=== PATIENT | female | born 1975 | race Hispanic/Latino ===

== ENCOUNTER 2021-09-16 05:32 | Observation (INO) | payer BC ==
[2021-09-15 11:32] LABS: BASOPHILS % (AUTO) 1.2 % (0.0-5.0); EOSINOPHILS % (AUTO) 4.5 % (0.0-8.0); HEMATOCRIT 33.5 % (36-48); MEAN CORPUSCULAR HEMOGLOBIN 23.1 pg (27.0-33.0); MEAN CORPUSCULAR HGB CONC 29.6 g/dL (32.0-36.0); MEAN CORPUSCULAR VOLUME 78.3 fL (79-99); MONOCYTES % (AUTO) 5.2 % (3.0-13.0); NEUTROPHILS % (AUTO) 64.7 % (40.0-77.0); PLATELET COUNT (AUTO) 414 K/uL (130-400); RED BLOOD CELL COUNT(AUTO) 4.28 MIL/uL (4.00-5.50); RED CELL DISTRIBUTION WIDTH 17.3 % (11.0-15.5)
[2021-09-15 12:40] VITALS: BP 141/87
[~2021-09-16] VITALS: Ht 157.5 cm; Wt 92.4 kg
[2021-09-16] VITALS (23 sets, daily range): BP systolic 102–144; BP diastolic 44–79
[~2021-09-16 05:32] MED LIST: APIX2.5T PO; ASCO500T20 PO; IRON1CAP35 PO; VITAMIN D PO
[2021-09-16] MEDS: CEFAZOLIN SODIUM 1 GM VIAL IVP SCH ×2 (06:00→07:32)
[2021-09-16] MEDS ORDERED: LACTATED RINGERS 1000ML 1,000 ML IV SCH (06:00)
[2021-09-16] MEDS ORDERED: ROCURONIUM 10MG/1ML SYR 10 MG/ML ML ONE ×2 (07:10→09:10)
[2021-09-16] MEDS ORDERED: LIDOCAINE PF 100MG/5ML (2%) SYRINGE 5ML ONE (07:10)
[2021-09-16] MEDS ORDERED: PROPOFOL 10 MG/ML 20ML VIAL IV ONE (07:10)
[2021-09-16] MEDS ORDERED: MIDAZOLAM HCL 1 MG/ML 2ML VIAL ONE (07:10)
[2021-09-16] MEDS ORDERED: SUCCINYLCHOLINE 200MG/10ML SYR ONE (07:10)
[2021-09-16] MEDS ORDERED: FENTANYL CITRATE PF 50 MCG/1 ML 2ML VIAL ONE ×2 (07:26→09:04)
[2021-09-16] MEDS ORDERED: DEXAMETHASONE SOD PHOSPHATE 4 MG/ML 1ML VIAL ONE (07:32)
[2021-09-16] MEDS ORDERED: PHENYLEPHRINE HCL 10 MG/ML 1ML VIAL IV ONE (07:42)
[2021-09-16] MEDS ORDERED: GLYCOPYRROLATE 1 MG/5 ML SYRINGE ONE (09:16)
[2021-09-16] MEDS ORDERED: ONDANSETRON 4MG INJ ONE (09:16)
[2021-09-16] MEDS ORDERED: NEOSTIGMINE 5MG/5ML SYR IV ONE (09:16)
[2021-09-16] MEDS ORDERED: MEPERIDINE-PF 25 MG/ML SYG ONE (10:09)
[2021-09-16] MEDS ORDERED: BISACODYL 10 MG SUPP.RECT RC PRN (11:00)
[2021-09-16] MEDS ORDERED: DOCUSATE SODIUM 100 MG CAP PO PRN (11:00)
[2021-09-16] MEDS ORDERED: SIMETHICONE 80 MG TAB.CHEW PO PRN (11:00)
[2021-09-16] MEDS ORDERED: PROMETHAZINE HCL 25 MG/ML 1ML AMPULE IM PRN ×2 (11:00)
[2021-09-16] MEDS ORDERED: MEPERIDINE-PF 75 MG/ML SYG IM PRN (11:00)
[2021-09-16] MEDS ORDERED: ONDANSETRON 4MG INJ IVP PRN (11:00)
[2021-09-16] MEDS: DEXTROSE 5 %-0.45 % NACL 1,000 ML IV PRN ×2 (11:06→19:42)
[2021-09-16] MEDS: IBUPROFEN 600 MG TABLET PO PRN (12:44)
[2021-09-16] MEDS: ACETAMINOPHEN WITH CODEINE 1 TAB TAB PO PRN ×2 (16:15→20:42)
[2021-09-17 03:19] VITALS: BP 113/70
[2021-09-17] MEDS: ACETAMINOPHEN WITH CODEINE 1 TAB TAB PO PRN (03:24)
[2021-09-17] MEDS: DEXTROSE 5 %-0.45 % NACL 1,000 ML IV PRN (03:44)
[2021-09-17 05:11] LABS: HEMATOCRIT 27.8 % (36-48); MEAN CORPUSCULAR HEMOGLOBIN 23.2 pg (27.0-33.0); MEAN CORPUSCULAR HGB CONC 29.5 g/dL (32.0-36.0); MEAN CORPUSCULAR VOLUME 78.8 fL (79-99); RED BLOOD CELL COUNT(AUTO) 3.53 MIL/uL (4.00-5.50); RED CELL DISTRIBUTION WIDTH 17.5 % (11.0-15.5); WHITE BLOOD COUNT (AUTO) 16.1 K/uL (4.8-10.8)
[2021-09-17 07:11] VITALS: BP 107/58
[2021-09-17] MEDS: IBUPROFEN 600 MG TABLET PO PRN (09:05)
[2021-09-17] MEDS ORDERED: ACET1TAB25 PO (11:33)
[2021-09-17 11:48] VITALS: BP 114/60
== END 2021-09-17 13:30 | disposition home or self-care (01) ==
LOC: DAH 05:32 → DAHIP 05:33 → DAH 05:33 → WSH 10:45
PROVIDERS: ADMIT Obstetrics & Gynecology; ATTEND Obstetrics & Gynecology
DX: D25.9 Leiomyoma of uterus, unspecified (principal); Z20.822 Contact with and (suspected) exposure to COVID-19; N92.1 Excessive and frequent menstruation with irregular cycle; R68.89 Other general symptoms and signs; D64.9 Anemia, unspecified; R10.2 Pelvic and perineal pain; K46.9 Unspecified abdominal hernia without obstruction or gangrene; N73.6 Female pelvic peritoneal adhesions (postinfective); N83.201 Unspecified ovarian cyst, right side; N83.202 Unspecified ovarian cyst, left side; Z98.891 History of uterine scar from previous surgery; Z79.899 Other long term (current) drug therapy; Z98.890 Other specified postprocedural states
CPT/HCPCS: 36415 ×2; 58552; 84703; 85025; 85027; 86850; 86900; 86901; 86923; 87635; 96372; A4215 ×2; A4216; A4221; A4222; A4223; A4510; A4600; A4649 ×3; A4663; A6260; C1769 ×2; C9803; G0378 ×26; J0330; J0690; J1100; J2001; J2175 ×2; J2250; J2370; J2405; J2550; J2704; J2710; J3010 ×2; J3490; J7030; J7120 ×2